=== PATIENT | male | born 1990 | race Caucasian/White ===

== ENCOUNTER 2024-09-08 18:57 | Emergency (ER) | payer SELFPAY ==
[2024-09-08] MEDS: chlordiazePOXIDE 25 MG Cap PO ONE (20:24)
[2024-09-08] MEDS ORDERED: chlordiazePOXIDE 25 MG Cap PO PRN ×2 (20:25→20:35)
== END 2024-09-08 20:52 | disposition home or self-care (01) ==
LOC: MW.ED 18:57
DX: F10.239 Alcohol dependence with withdrawal, unspecified (principal); F17.210 Nicotine dependence, cigarettes, uncomplicated; Z88.0 Allergy status to penicillin
CPT/HCPCS: 99284; A9270

== ENCOUNTER 2024-09-18 18:46 | Emergency (ER) | payer SELFPAY | END 2024-09-18 22:21 | disposition left against medical advice (07) | LOC: MW.ED 18:46 | DX: Z53.21 Procedure and treatment not carried out due to patient leaving prior to being seen by health care provider (principal) ==

== ENCOUNTER 2024-11-09 20:00 | Emergency (ER) | payer BC ==
[2024-11-09] MEDS: chlordiazePOXIDE 25 MG Cap PO ONE (22:13)
== END 2024-11-09 23:23 | disposition home or self-care (01) ==
LOC: MW.ED 20:00
DX: F10.220 Alcohol dependence with intoxication, uncomplicated (principal); I10 Essential (primary) hypertension; F17.210 Nicotine dependence, cigarettes, uncomplicated; Z88.0 Allergy status to penicillin; Y90.9 Presence of alcohol in blood, level not specified
CPT/HCPCS: 99283; A9270

== ENCOUNTER 2025-03-09 01:03 | Emergency (ER) | payer BC | END 2025-03-09 01:52 | disposition left against medical advice (07) | LOC: MW.ED 01:03 | DX: Z53.21 Procedure and treatment not carried out due to patient leaving prior to being seen by health care provider (principal) ==